=== PATIENT | female | born 1950 | race Two or more races ===

== ENCOUNTER 2017-06-23 07:12 | Inpatient (IN) | payer OTHER ==
[2017-06-23] MEDS ORDERED: IV NS 0.9% 1,000 ML BAG IV ONE (07:30)
[2017-06-23] MEDS ORDERED: ONDANSETRON HCL/PF 4 MG/2 ML VIAL IVP ONE (07:30)
[2017-06-23] MEDS ORDERED: ONDANSETRON HCL/PF 4 MG/2 ML VIAL ONE (07:32)
[2017-06-23] MEDS ORDERED: MORPHINE SULFATE INJ 2 MG/ML DISP.SYRIN IV ONE (08:00)
[2017-06-23] MEDS ORDERED: MORPHINE SULFATE INJ 4 MG/ML DISP.SYRIN ONE (08:09)
[2017-06-23] MEDS ORDERED: METOCLOPRAMIDE HCL 10 MG/2 ML VIAL ONE (09:19)
[2017-06-23] MEDS ORDERED: METOCLOPRAMIDE HCL 10 MG/2 ML VIAL IV ONE (09:30)
[2017-06-23] MEDS ORDERED: ASPIRIN 325 MG TABLET PO ONE (09:30)
[2017-06-23] MEDS ORDERED: ASPIRIN 325 MG TABLET ONE (09:37)
[2017-06-23] MEDS ORDERED: METO25TA6 PO (09:38)
[2017-06-23] MEDS ORDERED: HYDR12.5 PO (09:38)
[2017-06-23] MEDS ORDERED: CITA20TA11 PO (09:38)
[2017-06-23] MEDS ORDERED: ASPI81TA2 PO (09:38)
[2017-06-23] MEDS ORDERED: AMLO5TAB2 PO (09:38)
[2017-06-23] MEDS ORDERED: IV NS 0.9% 1,000 ML IV PRN (12:05)
[2017-06-23] MEDS ORDERED: HYDROCODONE/APAP 5/325MG 1 EACH TABLET PO PRN (12:30)
[2017-06-23] MEDS ORDERED: MAG HYDROX/AL HYDROX/SIMETH 30 ML UDC PO PRN (12:30)
[2017-06-23] MEDS ORDERED: Z GUARD REMEDY 2 OZ OINT TP PRN (12:30)
[2017-06-23] MEDS ORDERED: MAGNESIUM HYDROXIDE 30 ML UDC PO PRN (12:30)
[2017-06-23] MEDS ORDERED: ZOLPIDEM TARTRATE 5 MG TABLET PO PRN (12:30)
[2017-06-23] MEDS ORDERED: ACETAMINOPHEN 325 MG TABLET PO PRN (12:30)
[2017-06-23] MEDS: POTASSIUM CL. PREMIX PERIPHER. 50 ML IV SCH ×4 (18:11→22:14)
[2017-06-23] MEDS: MORPHINE SULFATE INJ 2 MG/ML DISP.SYRIN IV PRN (20:21)
[2017-06-24] MEDS: IV NS 0.9% 1,000 ML IV PRN ×3 (02:04→20:30)
[2017-06-24] MEDS: MORPHINE SULFATE INJ 2 MG/ML DISP.SYRIN IV PRN ×2 (05:56→10:21)
[2017-06-24] MEDS: PANTOPRAZOLE 40 MG TABLET.DR PO SCH (07:30)
[2017-06-24] MEDS: POTASSIUM CL. PREMIX PERIPHER. 50 ML IV SCH ×4 (09:09→11:56)
[2017-06-24] MEDS: ONDANSETRON HCL/PF 4 MG/2 ML VIAL IVP PRN (22:30)
[2017-06-25] MEDS: IV NS 0.9% 1,000 ML IV PRN (04:29)
[2017-06-25] MEDS: PANTOPRAZOLE 40 MG TABLET.DR PO SCH (07:30)
[2017-06-25] MEDS ORDERED: POTASSIUM CL. PREMIX PERIPHER. 50 ML IV SCH (09:00)
[2017-06-25] MEDS: Potassium Chloride 20 MEQ in IV D5/0.45 NACL 1,000 ML IV PRN ×2 (12:05→23:30)
[2017-06-25] MEDS: MORPHINE SULFATE INJ 2 MG/ML DISP.SYRIN IV PRN (15:37)
[2017-06-26] MEDS: PANTOPRAZOLE 40 MG TABLET.DR PO SCH (07:30)
[2017-06-26] MEDS ORDERED: ROCURONIUM BROMIDE 50 MG/5 ML ONE (10:22)
[2017-06-26] MEDS ORDERED: HYDROMORPHONE INJ 2 MG/ML DISP.SYRIN ONE (10:22)
[2017-06-26] MEDS ORDERED: SUCCINYLCHOLINE CHLORIDE 20 MG/ML VIAL ONE (10:22)
[2017-06-26] MEDS ORDERED: BUPIVACAINE 0.5 % PF 150 MG/30 ML VIAL ONE (10:23)
[2017-06-26] MEDS ORDERED: CLINDAMYCIN 900 MG/6 ML VIAL ONE (10:47)
[2017-06-26] MEDS ORDERED: ONDANSETRON HCL/PF 4 MG/2 ML VIAL ONE (11:38)
[2017-06-26] MEDS ORDERED: METOCLOPRAMIDE HCL 10 MG/2 ML VIAL ONE (11:58)
[2017-06-26] MEDS: LEVOFLOXACIN 750 MG /D5W 150ML 750 MG in PREMIX 1 EA IV SCH (12:50)
[2017-06-26] MEDS: Potassium Chloride 20 MEQ in IV D5/0.45 NACL 1,000 ML IV PRN (12:50)
[2017-06-26] MEDS ORDERED: MORPHINE SULFATE INJ 4 MG/ML DISP.SYRIN IV PRN (14:30)
[2017-06-26] MEDS: MORPHINE SULFATE INJ 2 MG/ML DISP.SYRIN IV PRN ×4 (14:32→20:39)
[2017-06-27] MEDS: Potassium Chloride 20 MEQ in IV D5/0.45 NACL 1,000 ML IV PRN (00:43)
[2017-06-27] MEDS: MORPHINE SULFATE INJ 2 MG/ML DISP.SYRIN IV PRN ×3 (00:52→08:36)
[2017-06-27] MEDS: PANTOPRAZOLE 40 MG TABLET.DR PO SCH (08:35)
[2017-06-27] MEDS: Magnesium 1GM/D5W 100ML PREMIX 100 ML IV SCH ×2 (10:15→11:18)
[2017-06-27] MEDS ORDERED: METR500T PO (10:58)
[2017-06-27] MEDS ORDERED: CIPR-262 PO (10:58)
[2017-06-27] MEDS ORDERED: ONDA4TAB5 PO (10:58)
[2017-06-27] MEDS ORDERED: HYDR-552 PO (11:14)
[2017-06-27] MEDS: LEVOFLOXACIN 750 MG /D5W 150ML 750 MG in PREMIX 1 EA IV SCH (12:33)
[2017-06-27] MEDS: ONDANSETRON HCL/PF 4 MG/2 ML VIAL IVP PRN (12:41)
== END 2017-06-27 18:00 | disposition home or self-care (01) | DRG 417 ==
DX: K85.10 Biliary acute pancreatitis without necrosis or infection (principal); I21.4 Non-ST elevation (NSTEMI) myocardial infarction; I50.30 Unspecified diastolic (congestive) heart failure; N39.0 Urinary tract infection, site not specified; K80.40 Calculus of bile duct with cholecystitis, unspecified, without obstruction; I10 Essential (primary) hypertension; Z88.0 Allergy status to penicillin; Z79.899 Other long term (current) drug therapy; Z79.82 Long term (current) use of aspirin; E11.65 Type 2 diabetes mellitus with hyperglycemia; E87.6 Hypokalemia; F32.9 Major depressive disorder, single episode, unspecified; I70.0 Atherosclerosis of aorta; K66.0 Peritoneal adhesions (postprocedural) (postinfection); M47.814 Spondylosis without myelopathy or radiculopathy, thoracic region